=== PATIENT | female | born 1995 | race Hispanic/Latino ===

== ENCOUNTER 2018-02-17 14:47 | Inpatient (IN) | payer OTHER ==
--- NOTE | 2018-02-17 15:48 | RAD REPORT ---
EXAM DESCRIPTION: US - OB Compl W Biophysical Profile - 02/17/2018 3:36 pm CLINICAL HISTORY: Amniotic fluid leak COMPARISON: December 28, 2017 FINDINGS: A single cephalic presenting gestation is identified. The 4 chamber heart view has a malathi l appearance. Heart rate normal. The intracranial contents and spine are grossly normal. A left -sided stomach bubble is seen with normal appearing bladder and kidneys. The 3 vessel cord, insertion site and anterior abdominal wall have normal appearance. No abnormalities are identifiable. measurements are as follows: BPD:9.17 Centimeters 37 weeks 2 days HC:34.00 Centimeters 39 weeks 1 day AC:35.47 Centimeters 39 weeks 3 days HL:6.47 Centimeters 37 weeks 4 days FL:7.49 Centimeters 38 weeks 2 days The estimated gestational age (EGA) is 38 weeks 2 days with an YASHIRA of 03/01/2018. ratios are n ormal or within acceptable limits. The placenta is grade I, anterior fundal in location. No low-lying or placenta previa. LUIS is 4.22 cm with the single largest pocket 1.53 cm. Normal range is 6.34-24.64 cm. Maternal adnexae is obscured. Biophysical profile score: Movement 2/2 Tone 2/2 Breathing 2/2 Fluid 0/2 Total 6/8 IMPRESSION: 1. Single cephalic gestation with an EGA of 38 weeks 2 days and an YASHIRA of the 03/01/2018 . 2. No abnormalities are identifiable. ratios are normal or within acceptable limits. 3. Grade I, anterior fundal placenta with no low-lying or placenta previa. 4. Biophysical profile score is 6/8 for low fluid volume. LUIS is 4.22 cm with single largest pocket 1 .53 cm. Normal range is 6.34-24.64 cm.
[2018-02-17] MEDS ORDERED: Ringers Lactate 1,000 ML IV PRN (16:32)
[2018-02-17] MEDS ORDERED: CARBOPROST TROME 250 MCG/ML IM PRN (16:32)
[2018-02-17] MEDS ORDERED: PROMETHAZINE 25 MG/ML VIAL IV PRN ×2 (16:32)
[2018-02-17] MEDS ORDERED: BUTORPHANOL 1 MG/ML INJ IV PRN (16:32)
[2018-02-17] MEDS ORDERED: METHYLERGONOVINE 0.2MG/ML AMP IM PRN (16:32)
[2018-02-17] MEDS ORDERED: OXYTOCIN/LR 20 UNIT/1,000 ML BAG IV ONE (16:44)
[2018-02-17] MEDS ORDERED: OXYTOCIN/LR 20 UNIT/1,000 ML BAG IV SCH (17:00)
[2018-02-17] MEDS ORDERED: Ringers Lactate 1,000 ML IV SCH (17:00)
[2018-02-17 17:04] LABS: RPR Titer ND
[2018-02-17 17:19] LABS: Absolute Monocytes 0.5 K/uL (0.1-1.3); Absolute Neutrophil 4.7 K/uL (1.8-8.0); Basophils % 0.2 % (0-1.3); Eosinophils % 0.8 % (0-4.4); Hematocrit 32.2 % (36.0-45.0); Lymphocytes % 27.3 % (15.3-44.8); MPV 9.2 fL (7.6-11.3); Monocytes % 6.4 % (3.3-12.3); RBC Red Blood Cell Count 3.82 M/uL (3.86-4.86)
--- NOTE | 2018-02-17 21:58 | P.OBGYNHP ---
Certification for Inpatient Patient admitted to: Inpatient With expected LOS: >2 Midnights Patient will require the following post-hospital care: None Practitioner: I am a practitioner with admitting privileges, knowledge of patient current condition, hospital course, and medical plan of care. Services: Services provided to patient in accordance with Admission requirements found in Title 42 Section 412.3 of the Code of Federal Regulations Patient History Date of Service: 02/17/18 Reason for admission: Spontaneous Rupture of Membranes History of Present Illness: Marysol is 22 y/o at 39 weeks and 4 days gestation who presented to labor and delivery for complaint of leakage of fluid. Earlier today she was evaluted and was found to be negative for rupture of membranes. She then went home and states that she started to have a larger gush of fluid leaking. She then also began to feel contractions. She has obtained care with Dr. Mackey and states there have not been complications in the . She is GBS negative. Once she presented to labor and delivery I ordered a BPP. Ultrasound reveals 07/16 due to the LUIS 4.22 cm, cephalic presentation. Allergies No Known Allergies Allergy (Unverified 11/16/17 10:05) - Past Medical/Surgical History Diabetic: No Past Medical History: Patient denies medical history Past Surgical History: Patient denies surgical history - Social History Smoking Status: Former smoker Alcohol use: No CD- Drugs: No Caffeine use: No Place of Residence: Home Review of Systems 10-point ROS is otherwise unremarkable Physical Examination - Vital Signs Temperature: 97.9 F Blood Pressure: 125/71 Pulse: 67 Respirations: 18 - General General: Alert and in no apparent distress HEENT: Atraumatic Neck: Supple Respiratory: Normal air movement Cardiovascular: No edema Neurological: Normal gait, Normal speech - Female Pelvic External genitalia: Normal Vagina: Normal, Wenden, Smooth, Other (Nitrazine Positive; clear fluid in the vaginal vault) Cervix: Dilation (2), Effacement (50%), station (-3) Uterus: Gravid Adnexa: Unable to evaluate - Obstetrics heart rate tracing: Category 1 Contractions: Frequency (every 3-6 minutes) Amniotic membrane: SROM Laboratory Data (last 24 hrs) 02/17/18 16:25: WBC 7.3, Hgb 10.7 L, Hct 32.2 L, Plt Count 283 Microbiology Data (last 24 hrs): GBS Neg Imagings Data: RADIOLOGY SERVICES REPORT (Continued) Name: MARYSOL ROPER CC: Lawrence Delcid PRISCILLA RUBY / Report: [id number] Radiology Services Report Page 2 of 2 RADIOLOGY SERVICES REPORT CC: Lawrence Delcid PRISCILLA RUBY / Report: [id number] Radiology Services Report Page 1 of 2 Name: MARYSOL ROPER Acct Number: [id number] : 1995 Age: 22 Sex: F Unit Number: [id number] Ord Phys: Lawrence Delcid DO Prim [facility] Dr: Status: REG REF L&D Exam Date: 02/17/18 Report Status: Signed EXAM DESCRIPTION: US - OB Compl W Biophysical Profile - 02/17/2018 3:36 pm CLINICAL HISTORY: Amniotic fluid leak COMPARISON: December 28, 2017 FINDINGS: A single cephalic presenting gestation is identified. The 4 chamber heart view has a normal appearance. Heart rate normal. The intracranial contents and spine are grossly normal. A left-sided stomach bubble is seen with normal appearing bladder and kidneys. The 3 vessel cord, insertion site and anterior abdominal wall have normal appearance. No abnormalities are identifiable. measurements are as follows: BPD:9.17 Centimeters 37 weeks 2 days HC:34.00 Centimeters 39 weeks 1 day AC:35.47 Centimeters 39 weeks 3 days HL:6.47 Centimeters 37 weeks 4 days FL:7.49 Centimeters 38 weeks 2 days The estimated gestational age (EGA) is 38 weeks 2 days with an YASHIRA of 2018. ratios are normal or within acceptable limits. The placenta is grade I, anterior fundal in location. No low-lying or placenta previa. LUIS is 4.22 cm with the single largest pocket 1.53 cm. Normal range is 6.34- 24.64 cm. Maternal adnexae is obscured. Biophysical profile score: Movement 2/2 Tone 2/2 Breathing 2/2 Fluid 0/2 Total 6/8 IMPRESSION: 1. Single cephalic gestation with an EGA of 38 weeks 2 days and an YASHIRA of the 03/01/2018. 2. No abnormalities are identifiable. ratios are normal or within acceptable limits. 3. Grade I, anterior fundal placenta with no low-lying or placenta previa. 4. Biophysical profile score is 6/8 for low fluid volume. LUIS is 4.22 cm with single largest pocket 1.53 cm. Normal range is 6.34-24.64 cm. Dictated By: Fahad Loomis MD 02/17/18 1548 Signed By: Fahad Loomis MD 02/17/18 1548 Boiler Coverer: LYNSEY 02/17/18 1548 Assessment and Plan - Plan Patient is a 22 y/o at 39 weeks and 4 days gestation with oligohydramnios due to spontaneous rupture of membranes. GBS is negative. Pitocin has been started for labor augmentation. Continuous maternal monitoring. Epidural placement at patient's request. Discharge Plan: Home Plan to discharge in: 48 Hours - Advance Directives Does patient have a Living Will: No Does patient have a Durable POA for Healthcare: No
[2018-02-17 22:58] LABS: RPR (Rapid Plasma Reagin) NON-REACT (NON-REACT)
[2018-02-18] MEDS ORDERED: FENTANYL/BUPIVACAINE/NS/PF 200 MCG/100 ML BAG EP PRN (03:13)
[2018-02-18] MEDS ORDERED: FENTANYL CITR 100 MCG/2 ML IV ONE (03:13)
[2018-02-18] MEDS ORDERED: BUPIVACAINE 0.25% PF 10 ML VIAL IV PRN (03:13)
[2018-02-18] MEDS ORDERED: LIDOCAINE 2% INJ, 20 mL 0 ML ONE (03:13)
[2018-02-18] MEDS ORDERED: CARBOPROST TROME 250 MCG/ML IM ONE (03:14)
[2018-02-18] MEDS ORDERED: METHYLERGONOVINE 0.2MG/ML AMP IM ONE (03:14)
[2018-02-18] MEDS ORDERED: NA CIT/CITRIC AC 30 ML ORAL UDC PO ONE (10:56)
[2018-02-18] MEDS ORDERED: CEFAZOLIN/SWI 1gm 1 GM/10 ML SYR IVP SCH (11:00)
[2018-02-18] MEDS ORDERED: METOCLOPRAMIDE 10 MG/2mL INJ IV SCH (11:00)
[2018-02-18] MEDS ORDERED: METOCLOPRAMIDE 10 MG/2mL INJ ONE (11:23)
[2018-02-18] MEDS ORDERED: DOCUSATE NA/SENNA CONC 1 TAB PO PRN (11:24)
[2018-02-18] MEDS ORDERED: METHYLERGONOVINE 0.2 MG TAB PO PRN (11:24)
[2018-02-18] MEDS ORDERED: ONDANSETRON 4 MG (ODT) TAB PO PRN (11:24)
[2018-02-18] MEDS ORDERED: BISACODYL 10 MG RECTAL SUPP RECT PRN (11:24)
[2018-02-18] MEDS ORDERED: ACETAMINOPHEN 500 MG TAB PO PRN (11:24)
[2018-02-18] MEDS ORDERED: Oxycodone HCl/Acetaminophen 1 TAB TAB PO PRN (11:24)
[2018-02-18] MEDS ORDERED: FAMOTIDINE 20 MG/2 ML VIAL IV ONE (11:25)
--- NOTE | 2018-02-18 11:34 | P.OP ---
Fire Crew Specialist: Linh Cedillo Preoperative diagnosis: Term preg, SROM, failure to progress, category II tracing Postoperative diagnosis: Same Primary procedure: Primary low transverse section Secondary procedure: None Anesthesia: Epidural Estimated blood loss: 800 cc Specimen: Cord blood and placenta Findings: Male infant in cephalic presentation, 8 9 weight 7 lb 10 oz Operative Technique: Patient is a 22 y/o at 39 weeks and 4 days gestation who was admitted last night for SROM. Patient has been on pitocin for labor augmentation. She has been shania regularly. She received an epidural. Following the epidural she did have a heart rate deceleration but it recovered well. Patient then has been continued with pitocin for augmentation. heart rate deceleration was again encountered at 6 cm dilation. Ressucitative measures were provided. Patient's labor was not progressing and heart rate decelerations continued therefore decision was made to perform a primary section. The patient was taken to the operating room where her epidural anesthesia was reinforced. She was prepped and draped in the usual fashion for the procedure. After adequate epidural level was confirmed, the scalpel was utilized to make a transverse incision in the patient's lower abdominal wall. This incision was carried down to the level of the fascia, which was also transversely incised. After adequate hemostasis, the fascia was bluntly and sharply up from the underlying rectus muscle. The rectus muscle was in midline exposing the peritoneum. The peritoneum was carefully grasped and elevated with hemostats. It was entered in an up and down fashion with Metzenbaum scissors. The bladder blade was placed in the lower pole of the incision to protect the bladder. The uterus was palpated and inspected. A thin lower uterine segment was noted. The vertex presentation was confirmed. The scalpel was then utilized to make a transverse or Wagner incision in the lower uterine wall. The was then delivered without difficulty in BRIELLE presentation. Nose and mouth were suctioned with a suction bulb. The cord was clamped and cut and baby was delivered off the field to the nurse. The placenta was manually extracted from the endometrial cavity. A Dodd clamps were placed around the margin of the uterine incision for hemostasis. The uterus was delivered up into the operative field. The endometrial cavity was swiped clean with a moist laparotomy pad. The uterine incision was then closed in a two-layered fashion with 0 Vicryl suture, the first layer interlocking and the second layer imbricating. Two additional stitches of 0 Vicryl suture were utilized for hemostasis. The uterine incision was noted to be hemostatic upon closure. Bladder flap was reapproximated with 3 O Vicryl. The uterus was rotated forward, normal tubes and ovaries were noted on both sides. The uterus was then returned to its normal position of the abdominal cavity. The sponge and instrument count was performed for the first time at this point and found to be correct. A final check of the uterine incision confirmed hemostasis. The rectus muscle was stabilized across the midline with two simple stitches of 0 Vicryl suture. The subcutaneous tissue was then exposed , and the fascia closed with two running lengths of 0 Vicryl suture, beginning in lateral margins and overlapping the midline. The subcutaneous tissue was then irrigated and inspected. No active bleeding was noted. It was closed with a running length of 2-0 plain catgut suture. The skin was then approximated with 3 O Vicryl on a Jonny needle. The incision was cleansed and sterilely dressed. The patient was transferred to the recovery room in stable condition. The estimated blood loss through the procedure was 800 mL. The sponge and instrument counts were performed two more times during closure and found to be correct each time. Drain(s): Urinary catheter Transferred to: Recovery Room Condition: Good
[2018-02-18] MEDS ORDERED: EPHEDRINE SULF 50 MG/ML VIAL ONE (11:44)
[2018-02-18] MEDS ORDERED: LIDOCAINE 2% W/EPI 1:200,000 MPF 20 ML VIAL IM ONE (11:44)
[2018-02-18] MEDS ORDERED: OXYTOCIN 10 UNIT/ML ML IV ONE (11:44)
[2018-02-18] MEDS ORDERED: MIDAZOLAM HCL 2 MG/2 ML INJ ONE (12:22)
[2018-02-18] MEDS ORDERED: IBUPROFEN 400 MG TAB PO PRN (12:42)
[2018-02-18] MEDS ORDERED: OXYTOCIN/LR 20 UNIT/1,000 ML BAG IV ONE ×2 (13:08→21:21)
[2018-02-18] MEDS ORDERED: Ringers Lactate 1,000 ML IV ONE (13:17)
[2018-02-18] MEDS ORDERED: MORPHINE 4 MG/ML SYR IV PRN (14:48)
[2018-02-18] MEDS: Oxycodone HCl/Acetaminophen 1 TAB TAB PO PRN (20:40)
[2018-02-19] MEDS: KETOROLAC 30 MG/ML INJ IV PRN ×2 (00:19→07:23)
[2018-02-19] MEDS: Oxycodone HCl/Acetaminophen 1 TAB TAB PO PRN ×3 (04:59→18:27)
[2018-02-19] MEDS ORDERED: Ringers Lactate 1,000 ML IV SCH (05:00)
[2018-02-19] MEDS ORDERED: Ringers Lactate 1,000 ML IV ONE (05:03)
[2018-02-19 07:31] LABS: Absolute Lymphocytes (CBC) 1.8 K/uL (0.7-4.9); Absolute Monocytes 0.9 K/uL (0.1-1.3); Basophils % 0.3 % (0-1.3); Eosinophils % 0.5 % (0-4.4); Lymphocytes % 18.4 % (15.3-44.8); MPV 8.2 fL (7.6-11.3); Monocytes % 8.8 % (3.3-12.3); RBC Red Blood Cell Count 3.03 M/uL (3.86-4.86)
[2018-02-19] MEDS ORDERED: FAMOTIDINE 20 MG/2 ML VIAL IV ONE (10:54)
[2018-02-19 12:20] VITALS: BMI 30.4
--- NOTE | 2018-02-19 17:59 | P.PN ---
Date of Service: 02/19/18 The patient is postop day 1 from a Primary section. She is doing well. She is tolerating diet. Her pain is well controlled. She is afebrile. She has no complaints today she is bonding well with the baby and is breast- feeding. Vital sign stable Selected Entries 02/19/18 02/19/18 07:39 08:23 Temperature 96.8 F Pulse Rate 82 Respiratory 18 Rate Blood Pressure 115/60 Pain Level 0 Laboratory Tests 02/17/18 02/19/18 16:25 07:20 WBC 7.3 9.7 D Hgb 10.7 L 8.4 L Hct 32.2 L 25.0 L D Plt Count 283 219 D General: Resting in bed no distress Head and neck: Normocephalic atraumatic, supple Respiratory: Symmetric nonlabored breathing Abdomen: Soft, mildly distended, mildly tender. Incision clean dry and intact Bilateral lower extremities: No clubbing cyanosis or edema. Assessment and plan patient is postop day 1 after repeat section she is doing well. Pain is well controlled. Discontinue IV discontinue Lujan catheter. Encourage patient to ambulate. Postsurgical anemia - asymptomatic. Will continue to monitor symptoms. Possible discharge home tomorrow.
[2018-02-20 07:31] VITALS: TEMP 97.6
[2018-02-20 11:51] VITALS: BP 115/59
--- NOTE | 2018-02-20 21:57 | P.DS ---
Admission Date: 02/17/18 Discharge Date: 02/20/18 Disposition: ROUTINE DISCHARGE Discharge Condition: GOOD Reason for Admission: Spontaneous Rupture of Membranes Brief History of Present Illness: Marysol is 22 y/o at 39 weeks and 4 days gestation who presented to labor and delivery for complaint of leakage of fluid. Earlier today she was evaluted and was found to be negative for rupture of membranes. She then went home and states that she started to have a larger gush of fluid leaking. She then also began to feel contractions. She has obtained care with Dr. Mackey and states there have not been complications in the . She is GBS negative. Once she presented to labor and delivery I ordered a BPP. Ultrasound reveals 6/ 8 due to the LUIS 4.22 cm, cephalic presentation. Hospital Course: Patient was admitted for management of oligohydramnios due to SROM. She received pitocin for labor augmentation. She did not progress from 7cm dilated. She then had a primary section performed. She did well following delivery of the baby. She has been bonding well. She is tolerating a regular diet. She is ambulating well. She is voiding without difficulty. She is breast feeding. She has been afebrile. She was found to be anemic. Informed patient to take iron twice a day and to continue with her vitamins. Vital Signs/Physical Exam: Temp Pulse Resp BP Pulse Ox 97.6 F 81 18 115/59 L 02/20/18 11:00 02/20/18 11:00 02/20/18 11:00 02/20/18 11:00 General: Alert, In no apparent distress HEENT: Atraumatic Neck: Supple Respiratory: Normal air movement Cardiovascular: No edema, Normal pulses Gastrointestinal: Soft and benign (fundus firm ) Musculoskeletal: No clubbing, No swelling Integumentary: No rashes, No breakdown (incision clean dry and intact) Neurological: Normal gait, Normal speech Laboratory Data at Discharge: WBC 9.7 K/uL (4.3-10.9) D 02/19/18 07:20 Hgb 8.4 g/dL (12.0-15.0) L 02/19/18 07:20 Hct 25.0 % (36.0-45.0) L D 02/19/18 07:20 Plt Count 219 K/uL (152-406) D 02/19/18 07:20 Home Medications: Codeine/APAP [Tylenol W/Codeine #3 tab] 1 tab PO Q6HP PRN #24 tab 02/20/18 Ferrous Sulfate [Ferrous Sulfate*] 325 mg PO BID #60 tab 02/20/18 Pnv#67/Iron Ps/FA Cmb#1/Dha [Vitafol Ultra Softgel] 1 cap PO DAILY #30 capsule 02/20/18 New Medications: Codeine/APAP [Tylenol W/Codeine #3 tab] 1 tab PO Q6HP PRN #24 tab PRN Reason: Pain Ferrous Sulfate [Ferrous Sulfate*] 325 mg PO BID #60 tab Pnv#67/Iron Ps/FA Cmb#1/Dha [Vitafol Ultra Softgel] 1 cap PO DAILY #30 capsule Diet: Regular Activity: No lifting more than 10 lbs Followup: Joceline Mackey MD [ACTIVE - CAN ADMIT] - (Follow up 1 week after delivery in Dr. Mackey's office. )
[2018-02-22 04:32] LABS: HBsAG Nonreactive (Nonreactive)
== END 2018-02-20 13:00 | disposition home or self-care (01) | DRG 788 ==
LOC: L&D 14:47 → 2ND-WC 15:50
PROVIDERS: ADMIT Specialist; ATTEND Specialist
PROC: 10D00Z1 Extraction of Products of Conception, Low, Open Approach (ICD-10-PCS; principal; 2018-02-18 12:00)
DX: O41.02X0 Oligohydramnios, second trimester, not applicable or unspecified (principal); O76 Abnormality in fetal heart rate and rhythm complicating labor and delivery; O34.211 Maternal care for low transverse scar from previous cesarean delivery; N85.8 Other specified noninflammatory disorders of uterus; O42.02 Full-term premature rupture of membranes, onset of labor within 24 hours of rupture; Z3A.39 39 weeks gestation of pregnancy; Z37.0 Single live birth
CPT/HCPCS: 36415; 76805; 76819; 83986; 85025; 86592; 86901; 87340; 88307; 99218; J0690; J2210; J2250; J2590; J2765; J3010